=== PATIENT | female | born 1980 | race Caucasian/White ===

== ENCOUNTER 2017-09-09 07:41 | Inpatient (IN) | payer SELFPAY ==
--- NOTE | 2017-09-09 07:41 | DT_ITS ---
This patient was seen during an EMR downtime September 09, 2017 - September 16, 2017. This patient may have a combination of paper and electronic documentation or all paper documentation. All documentation is viewable within the e-chart portion of [employer] for each patient visit.
[2017-09-12 11:39] LABS: Amphetamine Urine VISTA POSITIVE (<1000 ng/mL); Barbiturate Urine VISTA NEGATIVE (< 200 ng/mL); Benzodiazepine Urine VISTA NEGATIVE (< 200 ng/mL); Cocaine Urine VISTA NEGATIVE (< 300 ng/mL); Ecstacy Urine VISTA NEGATIVE (< 500 ng/mL); Methadone Urine VISTA NEGATIVE (< 300 ng/mL); PCP Urine VISTA NEGATIVE (< 25 ng/mL); THC Urine VISTA NEGATIVE (< 50 ng/mL); Vista UDS pH Range 5
[2017-09-12 18:26] LABS: ROM Internal Control Test YES-OK TO RESULT pt. (Internal QC); ROM Patient Test POSITIVE (Negative)
[2017-09-13 12:18] LABS: Group B Strep DNA By PCR Negative (Negative); Internal Control PASS; Probe Check PASS; Specimen Processing Control PASS
[2017-09-13 12:19] LABS: Chlamydia Trachomatis by PCR Negative (Negative); Neisserai gonorrhoeae by PCR Negative (Negative); Probe Check PASS; Sample Adequacy Control PASS; Specimen Processing Control PASS; Trichomonas Vag DNA by PCR Negative (Negative)
[2017-09-14 10:06] LABS: Hematocrit 29.1 % (37-47); Hemoglobin 9.3 g/dl (12.0-15.0); Mean Corpuscular Hgb 25.7 pg (27.0-32.0); Mean Corpuscular Volume 80.4 fL (81-99); Mean Platelet Vol. 9.8 fl (6.2-12.0); Platelet Count 294 K/mm3 (150-450); RBC Distribution Width CV 14.2 % (11.6-14.6); RBC Distribution Width SD 40.3 fl (35.1-43.9); Red Blood Count 3.62 M/mm3 (4.2-5.4); Scan Indicated on CBC? Y/N YES- FLAGS NOTED
[2017-09-14 10:07] LABS: Differential Comment SCANNED
--- NOTE | 2017-09-19 10:52 | CASEMGMT ---
Social Work Note Labor and Delivery Unit Hospital down time procedures in place during patient's hospital stay. Social work consult was completed with patient on 09-09-17, and handwritten note was completed to be scanned into patient's medical record. A referral was made during hospitalization to [facility]. -MAULIK Motta, SALES OPERATIONS MANAGER
--- NOTE | 2017-09-25 11:18 | CASEMGMT ---
Social Work Note Labor and Delivery Unit Received call from Ava Lovett at [facility] ([phone], extension [phone]) stating the case was transferred from [facility] to [facility]. Patient/mother of baby's home County determined to be [facility]. Ava inquiring in results of drug confirmation that was sent out. For continuity of care, related to original reason for this newswriter's referral [facility], provided update that no results are showing back yet. Agreed to let Ava know when results are available. -MAULIK Motta, NETWORK SECURITY ENGINEER
--- NOTE | 2017-09-30 16:39 | CASEMGMT ---
Social Work Note Labor and Delivery Unit Patient's confirmation drug screen results are back and showing positive for both amphetamines and methamphetamines in the MOB's urine drug screen. Call to Ava at [facility] ([phone], extension [phone]). Message left to call this abstract writer for results. -MAULIK Motta, ROTARY HELPER
--- NOTE | 2017-10-01 08:55 | CASEMGMT ---
Social Work Labor and Delivery Unit As part of initial referral to [facility], and continuity of care regarding [facility], this health technical writer reported to Ava at [facility] results of patient/mother of baby (MOB) urine drug confirmation screen for amphetamines. MOB had reported that did not use any drugs, so a confirmation of original specimen was sent out. Results reported to Ava that confirmation toxicology showing MOB positive for amphetamines (level 2900 ng/ml) and methamphetamine (level greater than 4000 ng/ml). No other services requested or indicated. -MAULIK Motta, CLINIC LEAD
--- NOTE | 2017-10-11 08:41 | CASEMGMT ---
Social Work Note Labor and Delivery Unit Received call from Ava at [facility] ([facility]) inquiring what type of method is used for the drug screens at the hospital. This securities underwriter spoke with [facility] lab. Normal urine drug screen is reported to this securities underwriter to be done by method of in vitro quality analysis. Send out confirmation drug screens are reported to this securities underwriter to be performed by the method of Gas chromatography/Mass spectrometry. Reported this information to Ava for continuity of care of original [facility] -MAULIK Motta, VESSEL TRAFFIC OFFICER
--- NOTE | 2017-10-31 12:22 | HP.PCM_ITS ---
History Date of Admission: 09/09/17 Final ARMANDO: 11/15/17 History of this : This is a 37 year-old, G [], P [], at 31 weeks gestational age. Allergies No Known Allergies Allergy (Verified 01/12/17 04:17) Home Medications: Home Medications Hydrocodone Bitart/Apap 5-325 [[place] 5/325] 1 tablet PO Q4H PRN PRN #12 tablet 01/12/17 Multivitamins,Therapeutic [Multivitamin] 1 tablet PO DAILY 01/12/17 Smz/Tmp Ds [Bactrim Ds] 1 tablet PO BID #14 tablet 01/12/17 Smoking Status: Current every day smoker History Past Pregnancies: Past Pregnancies Delivery Date Name GA/Weeks Outcome Route Weight Gender Labor Length Anesthesia Delivery Location Provider FOB Labs: Patient presented in PTL. Physical Exam General: Alert, Oriented x3 Assessment/Plan Patient presented in PTL. She is s/p SOcial work consult placed Routine care
== END 2017-09-10 16:00 | disposition home or self-care (01) | DRG 774 ==
LOC: WPOUT 09-10 12:52 → WP 09-10 13:07
PROVIDERS: Admitting Provider Obstetrics & Gynecology; Visit Provider Obstetrics & Gynecology
DX: O42.913 Preterm premature rupture of membranes, unspecified as to length of time between rupture and onset of labor, third trimester (principal); O98.22 Gonorrhea complicating childbirth; D62 Acute posthemorrhagic anemia; O99.324 Drug use complicating childbirth; O99.02 Anemia complicating childbirth; Z37.0 Single live birth; Z3A.31 31 weeks gestation of pregnancy; F15.10 Other stimulant abuse, uncomplicated; Z3A.30 30 weeks gestation of pregnancy
CPT/HCPCS: 59025; 59050; 80307; 84112; 85027; 86850; 86900; 87491; 87591; 87653; 87661; 99218; J7120; G0378; J0702

== ENCOUNTER 2020-01-03 00:57 | Emergency (ER) | payer MEDICAID, SELFPAY ==
[2020-01-03 00:59] VITALS: BP 135/95; PULSE 85; RESP 16; TEMP 36.9; O2SAT 96; BMI 33.4
--- NOTE | 2020-01-03 01:26 | RAD_ITS ---
STUDY: X-RAY - LEFT FOOT CLINICAL: Female, 39 years old. ROLLED LT ANKLE -- C/O LT LATERAL ANKLE AND FOOT PAIN TECHNIQUE: 3 view(s) of the foot. COMPARISON: None. FINDINGS: Normal talus, calcaneus, and tarsal bones. Normal visualized subtalar, talonavicular, calcaneocuboid, tarsal and tarsometatarsal articulations. Normal metatarsi. Normal metatarsophalangeal joint of the great toe. Normal tibial and fibular sesamoid bones. Normal interphalangeal joint of the great toe. Normal phalanges of the great toe. Normal second through fifth metatarsophalangeal joints. Normal interphalangeal joints and phalanges of the lesser toes. The soft tissue structures are unremarkable. RAD/Foot min 3 Views IMPRESSION: Normal x-ray examination of the foot. Electronically Signed: Floyd Hutchins MD at 2:01 EDT , Service support ,
--- NOTE | 2020-01-03 01:26 | RAD_ITS ---
STUDY: X-RAY - LEFT ANKLE REASON FOR EXAM: Female, 39 years old. ROLLED LT ANKLE -- C/O LT LATERAL ANKLE AND FOOT PAIN TECHNIQUE: 3 view(s) of the ankle. COMPARISON: None. FINDINGS: Normal visualized distal tibia and fibula. Normal medial and lateral malleoli. Normal tibiotalar articulation and ankle mortise. Normal visualized talus and calcaneus. The visualized subtalar, talonavicular, calcaneocuboid and tarsal articulations are normal. The soft tissue structures are unremarkable. RAD/Ankle min 3 Views IMPRESSION: Normal x-ray examination of the ankle. Electronically Signed: Floyd Hutchins MD at 1:54 EDT , Service support ,
[2020-01-03] MEDS: Ibuprofen 600 MG Tablet PO (01:30)
--- NOTE | 2020-01-03 02:09 | ED.VIS.LOWEX ---
History of Present Illness Chief Complaint: Lower Extremity Injury Informant: Patient Occurred: Today Mechanism/Context: Injury - twisted L ankle walking in someone's yard Context: Sudden Onset Timing: Continuous Quality of Pain: Aching Location: lateral left ankle Current Severity: Mild Maximum Severity: Moderate Worsened by: walking/WBing Relieved by: rest Associated Symptoms: - - Initially was able to weight-bear, but after several hours, now it is difficult. Negative for: Parasthesia, Weakness Narrative: Denies any other injury. Did not fall. Past Medical History - Allergies and Home Meds Allergies/Adverse Reactions: Allergies piperacillin [From Zosyn] Allergy (Verified 01/03/20 00:58) Hives tazobactam [From Zosyn] Allergy (Verified 01/03/20 00:58) Hives Primary Care Physician: Care Physician,No Primary [Primary Care Provider] - Past Medical History: None Smoking Status: Current every day smoker Review of Systems Musculoskeletal: Reports: Extremity Pain. Denies: Neck pain, Back pain Skin: Denies: Rash, Wounds Neurological: Denies: Headache, Weakness, Numbness Physical Exam Vital Signs/Narrative: Vital Signs Temp Pulse Resp BP Pulse Ox 01/03/20 00:59 98.4 F 85 16 135/95 H 96 Inital Vital Signs reviewed: Yes - Extremity Exam Left Ankle: Limited ROM - Due to pain, but intact., - - Mild bony tenderness at the lateral malleolus, no other ankle tenderness. Nontender fibular head and knee. Tender at the base of the fifth metatarsal without deformity. No instability with lateral pressure on the foot.. Negative for: Deformity General: Well nourished, Well developed, - - NAD Head: Normocephalic, Atraumatic Skin: Normal color, No rash, No Trauma - Skin intact Neurological: Alert, Oriented x3, Cranial nerves II-XII grossly intact, Normal Strength, Normal Sensation Psychological: Normal affect, Normal Mood Diagnostic/Tx/Re-eval Clinical Impression(s) from Imaging Studies Ankle X-Ray 01/03/20 01:26 IMPRESSION: Normal x-ray examination of the ankle. Electronically Signed: Floyd Hutchins MD at 1:54 EDT , Service support , Foot X-Ray 01/03/20 01:26 IMPRESSION: Normal x-ray examination of the foot. Electronically Signed: Floyd Hutchins MD at 2:01 EDT , Service support , - Medical Decision Making X-rays are negative, consistent with a sprain. Given Aircast, offered ibuprofen as well. Will offer crutches. ED Disposition - Plan for ED Patient: Disposition: Home or Assisted Living Instructions: ED Sprain Ankle W X Ray Referrals: Doctor,Your [STAFF PHYSICIAN] - 10-14 Days if not better
[2020-01-03 02:29] VITALS: RESP 16
== END 2020-01-03 02:31 | disposition home or self-care (01) ==
PROVIDERS: Emergency Provider Emergency Medicine
DX: S93.402A Sprain of unspecified ligament of left ankle, initial encounter (principal); F17.200 Nicotine dependence, unspecified, uncomplicated; X50.1XXA Overexertion from prolonged static or awkward postures, initial encounter; Y93.01 Activity, walking, marching and hiking; Y92.007 Garden or yard of unspecified non-institutional (private) residence as the place of occurrence of the external cause; Y99.8 Other external cause status
CPT/HCPCS: 73610; 73630; 99284

== ENCOUNTER 2020-02-14 19:23 | Emergency (ER) | payer MEDICAID, SELFPAY ==
[2020-02-14 19:24] VITALS: BP 143/80; PULSE 95; RESP 16; TEMP 36.2; O2SAT 99; BMI 31.4
[2020-02-14] MEDS: MethylPREDNISolone 125 MG/2 ML Vial IV (20:44)
[2020-02-14] MEDS: DiphenhydrAMINE 50 MG/ML Syringe IV (20:45)
[2020-02-14] MEDS: Famotidine 200 MG/20 ML MDV 20 MG in 0.9% Normal Saline (Pres. free 8 ML 300 MG IV (20:46)
[2020-02-14 20:48] VITALS: BP 120/73; PULSE 58; RESP 25; O2SAT 99
--- NOTE | 2020-02-14 21:10 | ED.DCSUM_ITS ---
History of Present Illness Chief Complaint: Allergic Reaction Informant: Patient Onset: Today Context: Sudden Onset Timing: Continuous Quality: Erythematous raised paretic rash Location: Torso and extremities Current Severity: Mild Maximum Severity: Moderate Worsened by: Itching Relieved by: Nothing Associated Symptoms: No respiratory, cardiac or GI symptoms Narrative: Patient is a 39-year-old woman who presents with erythematous raised pruritic rash. She states it was first noted on her right and left forearm. She states she was moving pallets yesterday and had ink on them. She has never had a reaction before. She denies ingestion of shellfish food, nuts or berries prior to arrival. She denies prior reaction. She denies swelling of her lips, tongue or throat. She denies trouble swallowing or change in voice. She denies diffi culty breathing. She denies chest pain, shortness of breath or dyspnea on exertion. She denies nausea, vomiting or diarrhea. She denies orthostatic symptoms. Prior similar symptoms: No Recent Illness/Hospitalization: No - Past Medical History (1) No significant past medical history Status: Acute Past Medical History - Allergies and Home Meds Allergies/Adverse Reactions: Allergies piperacillin [From Zosyn] Allergy (Verified 01/03/20 00:58) Hives tazobactam [From Zosyn] Allergy (Verified 01/03/20 00:58) Hives Primary Care Physician: Care Physician,No Primary [Primary Care Provider] - Past Medical History: None Surgical History: no surgical history Lives: Alone Smoking Status: Current every day smoker Alcohol: Rare Drugs: None Review of Systems General: Denies: Chills, Fever, Malaise Eyes: Denies: Visual changes - bilaterally, Blurred Vision - bilaterally ENT: Reports: - - See HPI. Denies: Rhinorrhea, Sore throat Cardiovascular: Denies: Chest pain, Palpitations Respiratory: Denies: Dyspnea, Cough, Dyspnea on exertion Gastrointestinal: Denies: Abdominal pain, Nausea, Vomiting, Diarrhea Musculoskeletal: Reports: Swelling. Denies: Myalgias, Arthralgias, Extremity Pain Skin: Reports: Rash. Denies: Wounds Neurological: Denies: Weakness, Parasthesia, Numbness Hematologic: Denies: Easy bruising Allergy: Reports: Uticaria. Denies: Swelling of the mouth, Swelling of the tongue Physical Exam Vital Signs/Narrative: Vital Signs Temp Pulse Resp BP Pulse Ox 02/14/20 20:48 58 L 25 H 120/73 99 02/14/20 19:24 97.2 F L 95 16 143/80 H 99 Inital Vital Signs reviewed: Yes General: Well nourished, Well developed, No Acute Distress Head: Normocephalic, Atraumatic, Trauma Eyes: Perrl, EOMI. Negative for: Pale conjunctiva, Scleral icterus ENT: Moist mucous membranes, No rhinorrhea. Negative for: TM's clear Neck: Supple, Nontender, No lymphadenopathy, No JVD Cardiovascular: Regular rate, Regular rhythm, No murmurs, Normal S1, Normal S2 Respiratory: No distress, CTA bilaterally, Chest nontender Abdomen: Soft, Nontender, Nondistended, Normal bowel sounds, No masses Back: Nontender, Normal Inspection. Negative for: CVA tenderness Extremities: Nontender, No edema Skin: Normal color, Rash - Patient has an urticarial rash. Neurological: Alert, Oriented x3, Cranial nerves II-XII grossly intact, Normal Strength, Normal Sensation Psychological: Normal affect, Normal Mood Diagnostic/Tx/Re-eval - Medical Decision Making She has generalized urticaria with no other symptoms. She was treated with IV H1, H2 felice and Solu-Medrol. She was reassessed at 2109. Her rash has essentially resolved. Patient states her itching has resolved. She was instructed to follow-up with her primary care physician. The name of her primary care physician is located on her insurance card. ED Disposition - Plan for ED Patient: Disposition: Home or Assisted Living Diagnosis: Urticaria Instructions: ED URTICARIA Prescriptions: DiphenhydrAMINE [Benadryl] 25 mg PO 4X/DAY #20 cap Prescription Printed Prednisone [Deltasone] 40 mg PO DAILY #10 tab Prescription Printed Famotidine [Pepcid] 20 mg PO BID #10 tab Prescription Printed Referrals: Care Physician,No Primary [Primary Care Provider] - As soon as possible Additional Instructions: Name of your physician is located on your insurance card. Contact your physician for allergy testing.
[2020-02-14 22:00] VITALS: BP 108/61; PULSE 61; RESP 26; O2SAT 99
[2020-02-14 22:55] VITALS: BP 108/71; PULSE 69; RESP 17; O2SAT 98
== END 2020-02-14 22:56 | disposition home or self-care (01) ==
PROVIDERS: Emergency Provider Emergency Medicine
DX: L50.9 Urticaria, unspecified (principal); F17.200 Nicotine dependence, unspecified, uncomplicated
CPT/HCPCS: 96374; 96375; 99285; J7030; J7040; A4216; J3490

== ENCOUNTER → 2020-04-12 16:40 | Outpatient (CLI) | payer MEDICAID, SELFPAY ==
[2020-04-12 17:30] LABS: Absolute Lymphocyte Count 2.72 X10^3/uL (0.83-4.51); Absolute Neutrophil Count 8.9 X10^3/uL (2.0-7.7); Basophil# 0.01 X10^3/uL; Basophil% 0.1 % (0-1); Eosinophil# 0.22 X10^3/uL; Eosinophils% 1.8 % (0-5); Hematocrit 40.9 % (37-47); Hemoglobin 14.4 g/dL (12.0-15.0); Lymphocyte # 2.72 X10^3/ul (4.0); Lymphocyte % 22.6 % (19-41); Mean Corp Hgb Conc 35.2 g/dL (32-36); Mean Corpuscular Hgb 29.3 pg (27.0-32.0); Mean Corpuscular Volume 83.1 fL (81-99); Mean Platelet Vol. 9.7 fl (6.2-12.0); Monocyte# 0.21 X10^3/uL; Monocyte% 1.7 % (0-10); NRBC Flagged by Analyzer 0 % (0-5); Neutrophil # 8.85 X10^3/uL (2.7-7.7); Neutrophil % 73.5 % (47-70); Platelet Count 257 K/mm3 (150-450); RBC Distribution Width CV 12.5 % (11.6-14.6); RBC Distribution Width SD 37.9 fl (35.1-43.9); Red Blood Count 4.92 M/mm3 (4.2-5.4); White Blood Count 12.1 K/mm3 (4.4-11.0)
[2020-04-13 11:33] LABS: HIV - WCH Non-Reactive (Nonreactive); Hepatitis B Surface Antigen Non-Reactive (Nonreactive); Rubella IgG Reactive (Nonreactive)
[2020-04-13 11:47] LABS: Hepatitis C Antibody Reactive (Nonreactive)
[2020-04-14 01:36] LABS: Prenatal RPR NONREACTIVE (NONREACTIVE)
[2020-04-15 08:16] LABS: Chlamydia By Nucleic Acid AMP Negative (Negative)
[2020-04-15 08:24] LABS: Gonococcus By Nucleic Acid AMP Negative (Negative)
[2020-04-15 15:54] LABS: HPV APTIMA, High Risk Negative (Negative)
[2020-04-15 21:13] LABS: HCV log 10 6.955 (.)
== END ==
PROVIDERS: Visit Provider Obstetrics & Gynecology
DX: O98.411 Viral hepatitis complicating pregnancy, first trimester (principal); B19.20 Unspecified viral hepatitis C without hepatic coma; Z3A.00 Weeks of gestation of pregnancy not specified
CPT/HCPCS: 36415; 85025; 86703; 86762; 86803; 87086; 87088; 87186; 87340; 87491; 87522; 87591; 87624; 88175; G0145

== ENCOUNTER 2020-04-18 23:32 | Emergency (ER) | payer MEDICAID, SELFPAY ==
[2020-04-18 23:34] VITALS: BP 118/72; PULSE 111; RESP 16; TEMP 36.8; O2SAT 97; BMI 31.4
--- NOTE | 2020-04-18 23:51 | ED.DCSUM_ITS ---
History of Present Illness Chief Complaint: General Illness Detail of Chief Complaint: fever Informant: Patient Onset: Days - 2 Context: Gradual Onset Timing: Continuous Quality: throbbing, aching Location: global headache Current Severity: Moderate Maximum Severity: Moderate Worsened by: light Relieved by: nothing Associated Symptoms: mild global blurry vision, photophobia, fever to 101 Narrative: Patient started having headache 2 days ago, then started developing a fever earlier today. She denies any cough or respiratory symptoms. She works at a local factory. Patient presents during the national coronavirus emergency declaration/pandemic. Denies recent illness including COVID-19 or contact with anyone that he knows of who has had it. Denies traveling out of the immediate area recently. She states she is 7 weeks , having no abdominal pain, she had urinary frequency and nausea prior to developing the headache and fever, that has not changed, but now her urine smelled strong and she is concerned she may have a UTI. Past Medical History - Allergies and Home Meds Allergies/Adverse Reactions: Allergies piperacillin [From Zosyn] Allergy (Verified 04/18/20 23:36) Hives tazobactam [From Zosyn] Allergy (Verified 04/18/20 23:36) Hives Primary Care Physician: Vladimir Wood MD [Primary Care Provider] - Past Medical History: None Surgical History: no surgical history Smoking Status: Current every day smoker Review of Systems General: Reports: Chills, Fever, Malaise. Denies: Sweats Eyes: Reports: Blurred Vision - bilaterally - With photophobia mild. Denies: Diplopia ENT: Denies: Bilateral ear pain, Rhinorrhea, Sore throat Cardiovascular: Denies: Chest pain, Palpitations Respiratory: Denies: Dyspnea, Cough, Dyspnea on exertion Gastrointestinal: Reports: Nausea. Denies: Abdominal pain, Vomiting, Diarrhea, Melena, Hematochezia Genitourinary: Denies: Dysuria, Hematuria, Frequency Musculoskeletal: Denies: Myalgias, Back pain, Swelling, Extremity Pain Skin: Denies: Rash, Wounds Neurological: Reports: Headache, - - No confusion/disorientation or neck stiffness. Denies: Weakness, Numbness Physical Exam Vital Signs/Narrative: Vital Signs Temp Pulse Resp BP Pulse Ox 04/18/20 23:34 98.2 F 111 H 16 118/72 97 Inital Vital Signs reviewed: Yes General: Well nourished, Well developed, No Acute Distress - Well-appearing, conversive in full sentences, able to sit up in bed on her own, chin to chest without difficulty Head: Normocephalic, Atraumatic Eyes: Perrl, EOMI ENT: Moist mucous membranes, No rhinorrhea Neck: Supple, Nontender, No lymphadenopathy Cardiovascular: Regular rate, Regular rhythm, No murmurs Respiratory: No distress, CTA bilaterally, Chest nontender Abdomen: Soft, Nontender, Nondistended, Normal bowel sounds Back: Nontender, Normal Inspection. Negative for: CVA tenderness Extremities: Nontender, No edema Skin: Normal color, No rash, No Trauma Neurological: Alert, Oriented x3, Cranial nerves II-XII grossly intact, Normal Strength, Normal Sensation, Normal Gait Psychological: Normal affect, Normal Mood Diagnostic/Tx/Re-eval Laboratory Tests 04/19/20 Range/Units 00:04 Urine Color Yellow (Yellow) Urine Clarity Sl Cldy (Clear) Urine pH 5.0 (5.0 - 8.0) Ur Specific [place] 1.020 (1.002-1.030) Urine Protein 30 H (Negative) mg/dl Urine Glucose (UA) Normal (Normal) mg/dl Urine Ketones Negative (Negative) mg/dl Urine Occult Blood 50 H (Negative) /ul Urine Nitrite Negative (Negative) Urine Bilirubin Negative (Negative) mg/dL Urine Urobilinogen 1 H (Normal) mg/dl Ur Leukocyte Esterase 500 H (Negative) /ul Urine RBC 0-5 SEEN (0-5) /hpf Urine WBC 50-100 SEEN (0-5) /hpf Ur Squamous Epith Cells 5-10 SEEN (5-10) /hpf Urine Bacteria 2+ (None Seen) /hpf Urine Mucus 1+ (<or=2+) /hpf - Medical Decision Making Patient's urinalysis is consistent with infection which hopefully is the cause of her symptoms. However, since she presents during the coronavirus pandemic, I did recommend sending a COVID-19 test which she was amenable to, this was sent PCR as an outpatient since it will be more accurate and she would not meet criteria for monoclonal antibody infusion or any other specific treatments right now, so if she has it we do not need to know quickly for medical purposes. She was advised to quarantine until her test comes back in 3-5 days. Started on cephalexin which given her Zosyn allergy she will have a very low risk of reacting to. ED Disposition - Plan for ED Patient: Disposition: Home or Assisted Living Diagnosis: Urinary tract infection during in first trimester Instructions: ED Bladder Infection, Female (Adult) Prescriptions: Cephalexin [Keflex] 500 mg PO 4X/DAY 5 Days #20 cap Transmission Status: Pending to [facility] Referrals: Vladimir Wood MD [Primary Care Provider] - 3-5 Days if not improving Additional Instructions: Your urine was sent for culture. If you do not feel like you are urinary symptoms are improved, follow-up with your doctor for culture results and poss ible need for antibiotic change.
[2020-04-19] MEDS: Ibuprofen 600 MG Tablet PO (00:07)
[2020-04-19] MEDS: Metoclopramide 10 MG Tablet PO (00:08)
[2020-04-19 00:11] LABS: Glucose, Dipstick Normal (Normal); Ketone-Dipstick Negative (Negative); Leukocyte Esterase-Dipstick 500 /ul (Negative); Nitrite-Dipstick Negative (Negative); Occult Blood-Urine 50 /ul (Negative); Protein-Dipstick 30 mg/dl (Negative); Urine Bilirubin Dipstick Negative (Negative); Urine Urobilinogen 1 mg/dl (Normal)
[2020-04-19 00:32] LABS: Color, Urine Yellow (Yellow); Urine Clarity Sl Cldy (Clear)
[2020-04-19 00:33] LABS: White Blood Cells 50-100 SEEN /hpf (0-5)
[2020-04-19 00:34] LABS: Bacteria 2+ /hpf (None Seen); Red Blood Cells-Urine 0-5 SEEN /hpf (0-5); Squamous Epithelial Cells - UA 5-10 SEEN /hpf (5-10)
[2020-04-19 00:35] LABS: Mucous, Urine 1+ /hpf (<or=2+)
[2020-04-19] MEDS: Cephalexin 250 MG Capsule 500 MG PO (00:39)
== END 2020-04-19 01:21 | disposition home or self-care (01) ==
LOC: ED 04-19 00:38
PROVIDERS: Emergency Provider Emergency Medicine; PCP Obstetrics & Gynecology
DX: O23.41 Unspecified infection of urinary tract in pregnancy, first trimester (principal); Z3A.01 Less than 8 weeks gestation of pregnancy; O99.331 Smoking (tobacco) complicating pregnancy, first trimester; F17.200 Nicotine dependence, unspecified, uncomplicated
CPT/HCPCS: 81001; 87086; 87088; 87186; 87635; 99283; U0005; U0003

== ENCOUNTER → 2020-04-21 14:37 | Outpatient (CLI) | payer MEDICAID, SELFPAY ==
[2020-04-18 23:34] VITALS: BMI 31.4
[2020-04-21 16:06] LABS: ALB/GLOB Ratio 0.7 RATIO (0.9-2.4); AST(SGOT) 55 U/L (15-37); Alanine Aminotransfer ALT/SGPT 75 U/L (13-56); Albumin, Serum 3.3 g/dL (3.2-5.0); Alkaline Phosphatase 61 U/L (45-117); Anion Gap 7 (5-15); BUN 7 mg/dL (7-18); Calcium,Total 8.6 mg/dL (8.5-10.1); Chloride 104 mmol/L (98-107); Creatinine, Serum 0.54 mg/dL (0.55-1.02); EST Glomerular Filtration Rate 135 mL/min (>60); Est Glom Filt Rate - Afr Amer 163 mL/min (>60); Globulin 4.7 g/dL (2.2-4.2); Glucose 79 mg/dL (74-106); Potassium 3.5 mmol/L (3.5-5.1); Sodium Level 136 mmol/L (136-145)
== END ==
PROVIDERS: PCP Obstetrics & Gynecology; Visit Provider Obstetrics & Gynecology
DX: O98.411 Viral hepatitis complicating pregnancy, first trimester (principal); B19.20 Unspecified viral hepatitis C without hepatic coma; Z3A.00 Weeks of gestation of pregnancy not specified
CPT/HCPCS: 36415; 80053

== ENCOUNTER → 2020-06-07 16:47 | Outpatient (CLI) | payer MEDICAID, SELFPAY ==
[2020-06-16 14:09] LABS: AFP MoM Value 1.19 (.); AFP Value-EIA 30.9 ng/mL (.); Comment Report (.); DIA MoM Value 1.28 (.); DIA Value-EIA 206.96 pg/mL (.); DSR (By Age) 105 (.); DSR (Second Trimester) 770 (.); Gestat. Age Based On As provided (.); Insulin Dep Diabetes No (.); Maternal Age At EDD 39.3 yr (.); hCG MoM 0.76 (.); hCG Value 38414 mIU/mL (.)
[2020-06-16 14:43] LABS: CF, Screen Comment: (.)
== END ==
PROVIDERS: PCP Obstetrics & Gynecology; Visit Provider Obstetrics & Gynecology
DX: O09.522 Supervision of elderly multigravida, second trimester (principal); Z3A.00 Weeks of gestation of pregnancy not specified
CPT/HCPCS: 36415; 81220; 82105; 82677; 84702

== ENCOUNTER 2020-06-23 03:19 | Emergency (ER) | payer MEDICAID, SELFPAY ==
[2020-06-23 03:20] VITALS: BP 145/88; PULSE 100; RESP 18; TEMP 36.6; O2SAT 100; BMI 31.9
--- NOTE | 2020-06-23 03:33 | ED.VISSUMM ---
- ER Visit Summary Date of Service: 06/23/20 Chief Complaint: Abdominal pain, 17 weeks gestation History of Present Illness: The patient is a 39 F who presents with lower abdominal pain. Is been ongoing all day yesterday into this morning. She is G7, P6 at 17 weeks. She has had some slight nausea without vomiting. She describes the pain as sharp and in the suprapubic region and radiates to the right lower quadrant. She does have a history of constipation. Her last bowel movement was 3 days ago. She denies any dysuria or hematuria. She has had an ultrasound with this that shows an intrauterine . She took Tums gas relief without any resolution of her pain. Dr. Wood is her MANAGER SPA. She has had an appendectomy in the past as well. She denies any vaginal bleeding or vaginal discharge. Physical Examination: Vital signs reviewed. HEENT exam unremarkable. Heart is regular rate and rhythm without murmurs. Lungs are clear to auscultation. Abdomen is soft and nontender. Extremities reveal no edema. Skin exam normal. Neurologic exam normal. Test Results: Urinalysis has 4+ bacteria with 0-5 white blood cells. Emergency Department Course and Treatment: I performed a bedside ultrasound. It does show an active fetus with a heart tone of 156. She does not have an appendix therefore this cannot be appendicitis. It could be round ligament pain or constipation. She does have asymptomatic bacteria. I will place her on Keflex for this. She has tolerated Rocephin in the past. She will continue Tylenol at home. Also place her on Colace as a stool softener. Treatment Plan: [] Disposition: Discharge Impression: Second trimester , asymptomatic bacteriuria, abdominal pain This note was generated with [employer] dictation software. It may contain incorrect words, spelling, and punctuation that were not noted in review of the chart prior to signing ED Disposition - Plan for ED Patient: Disposition: Home or Assisted Living Instructions: ED Abdominal Pain Unkn Cause Fem Prescriptions: Docusate Sodium [Colace] 100 mg PO DAILY #20 capsule Transmission Status: Pending to [facility] Cephalexin [Keflex] 500 mg PO Q12 #10 capsule Transmission Status: Pending to [facility] Referrals: Vladimir Wood MD [Primary Care Provider] -
[2020-06-23] MEDS: Acetaminophen 500 MG Tablet 1000 MG PO (03:34)
[2020-06-23 03:37] LABS: Red Blood Cells-Urine 0 SEEN /hpf (0-5)
[2020-06-23 03:39] LABS: Color, Urine Yellow (Yellow); Glucose, Dipstick Normal (Normal); Ketone-Dipstick 5 mg/dl (Negative); Leukocyte Esterase-Dipstick 100 /ul (Negative); Nitrite-Dipstick Negative (Negative); Occult Blood-Urine 10 /ul (Negative); Protein-Dipstick 15 mg/dl (Negative); Specific Gravity, Urine 1.025 (1.002-1.030); Urine Bilirubin Dipstick Negative (Negative); Urine Clarity Clear (Clear); Urine Urobilinogen 1 mg/dl (Normal)
[2020-06-23 03:47] LABS: White Blood Cells 0-5 SEEN /hpf (0-5)
[2020-06-23 03:48] LABS: Bacteria 4+ /hpf (None Seen); Hyaline Cast 0-5 SEEN /lpf (0-5); Mucous, Urine 3+ /hpf (<or=2+); Squamous Epithelial Cells - UA 0-5 SEEN /hpf (5-10)
[2020-06-23] MEDS: Cephalexin 250 MG Capsule 500 MG PO (04:31)
[2020-06-23 04:33] VITALS: BP 142/81; PULSE 80; RESP 18; O2SAT 96
== END 2020-06-23 04:33 | disposition home or self-care (01) ==
PROVIDERS: Emergency Provider Emergency Medicine; PCP Obstetrics & Gynecology
DX: O26.892 Other specified pregnancy related conditions, second trimester (principal); R82.71 Bacteriuria; O99.332 Smoking (tobacco) complicating pregnancy, second trimester; Z3A.17 17 weeks gestation of pregnancy
CPT/HCPCS: 81001; 99283

== ENCOUNTER → 2020-07-12 16:37 | Outpatient (CLI) | payer MEDICAID, SELFPAY ==
[2020-06-23 03:20] VITALS: BMI 31.9
[2020-07-12 17:33] LABS: Hematocrit 37.7 % (37-47); Hemoglobin 12.9 g/dL (12.0-15.0); Mean Corp Hgb Conc 34.2 g/dL (32-36); Mean Corpuscular Hgb 29.9 pg (27.0-32.0); Mean Corpuscular Volume 87.3 fL (81-99); Platelet Count 236 K/mm3 (150-450); RBC Distribution Width CV 13.2 % (11.6-14.6); Red Blood Count 4.32 M/mm3 (4.2-5.4); White Blood Count 14.4 K/mm3 (4.4-11.0)
[2020-07-12 18:28] LABS: ALB/GLOB Ratio 0.7 RATIO (0.9-2.4); AST(SGOT) 25 U/L (15-37); Alanine Aminotransfer ALT/SGPT 34 U/L (13-56); Alkaline Phosphatase 55 U/L (45-117); Anion Gap 6 (5-15); BUN 7 mg/dL (7-18); BUN/Creat Ratio 11.8 RATIO (10-20); Calcium,Total 8.9 mg/dL (8.5-10.1); Chloride 105 mmol/L (98-107); Creatinine, Serum 0.59 mg/dL (0.55-1.02); EST Glomerular Filtration Rate 120 mL/min (>60); Est Glom Filt Rate - Afr Amer 146 mL/min (>60); Globulin 4.3 g/dL (2.2-4.2); Glucose 85 mg/dL (74-106); Potassium 3.4 mmol/L (3.5-5.1); Protein, Total 7.3 g/dL (6.4-8.2); Sodium Level 135 mmol/L (136-145)
[2020-07-13 08:41] LABS: HIV - WCH Non-Reactive (Nonreactive); Syphilis Antibodies Non-reactive
[2020-07-14 20:08] LABS: HCV Quant. RNA PCR 1620000 IU/mL (.)
== END ==
PROVIDERS: PCP Obstetrics & Gynecology; Visit Provider Obstetrics & Gynecology
DX: O98.412 Viral hepatitis complicating pregnancy, second trimester (principal); B19.20 Unspecified viral hepatitis C without hepatic coma; Z3A.00 Weeks of gestation of pregnancy not specified
CPT/HCPCS: 36415; 80053; 85027; 86703; 86780; 87522

== ENCOUNTER → 2020-08-11 15:56 | Outpatient (CLI) | payer MEDICAID, SELFPAY ==
[2020-08-11 17:16] LABS: Hematocrit 37.6 % (37-47); Hemoglobin 12.6 g/dL (12.0-15.0); Mean Corp Hgb Conc 33.5 g/dL (32-36); Mean Corpuscular Hgb 29.2 pg (27.0-32.0); Mean Platelet Vol. 9.8 fl (6.2-12.0); Platelet Count 228 K/mm3 (150-450); RBC Distribution Width CV 13.2 % (11.6-14.6); RBC Distribution Width SD 41.8 fl (35.1-43.9); Red Blood Count 4.32 M/mm3 (4.2-5.4); White Blood Count 12.2 K/mm3 (4.4-11.0)
[2020-08-11 17:58] LABS: Glucose Challenge Gest 1H 50g 108 mg/dL (70-140)
== END ==
PROVIDERS: PCP Obstetrics & Gynecology; Visit Provider Obstetrics & Gynecology
DX: Z34.82 Encounter for supervision of other normal pregnancy, second trimester (principal)
CPT/HCPCS: 36415; 82950; 85027

== ENCOUNTER → 2020-11-01 17:03 | Outpatient (CLI) | payer MEDICAID, SELFPAY ==
[2020-11-01 17:37] LABS: Hematocrit 39.3 % (37-47); Hemoglobin 13.6 g/dL (12.0-15.0); Mean Corp Hgb Conc 34.6 g/dL (32-36); Mean Corpuscular Hgb 29.5 pg (27.0-32.0); Mean Corpuscular Volume 85.2 fL (81-99); Mean Platelet Vol. 10.3 fl (6.2-12.0); Platelet Count 193 K/mm3 (150-450); RBC Distribution Width SD 42.8 fl (35.1-43.9); Red Blood Count 4.61 M/mm3 (4.2-5.4); White Blood Count 11.6 K/mm3 (4.4-11.0)
[2020-11-01 18:01] LABS: ALB/GLOB Ratio 0.6 RATIO (0.9-2.4); AST(SGOT) 20 U/L (15-37); Alanine Aminotransfer ALT/SGPT 22 U/L (13-56); Albumin, Serum 2.7 g/dL (3.2-5.0); Alkaline Phosphatase 86 U/L (45-117); Anion Gap 8 (5-15); BUN 8 mg/dL (7-18); BUN/Creat Ratio 15.6 RATIO (10-20); Calcium,Total 8.1 mg/dL (8.5-10.1); Chloride 109 mmol/L (98-107); Creatinine, Serum 0.51 mg/dL (0.55-1.02); EST Glomerular Filtration Rate 141 mL/min (>60); Est Glom Filt Rate - Afr Amer 171 mL/min (>60); Globulin 4.2 g/dL (2.2-4.2); Glucose 90 mg/dL (74-106); Potassium 3.9 mmol/L (3.5-5.1); Protein, Total 6.9 g/dL (6.4-8.2); Sodium Level 139 mmol/L (136-145)
[2020-11-02 09:01] LABS: HIV - WCH Non-Reactive (Nonreactive); Syphilis Antibodies Non-reactive
[2020-11-04 13:01] LABS: HCV log 10 5.967 (.)
== END ==
PROVIDERS: PCP Obstetrics & Gynecology; Visit Provider Obstetrics & Gynecology
DX: O98.419 Viral hepatitis complicating pregnancy, unspecified trimester (principal); B19.20 Unspecified viral hepatitis C without hepatic coma; Z3A.00 Weeks of gestation of pregnancy not specified; Z36.85 Encounter for antenatal screening for Streptococcus B
CPT/HCPCS: 36415; 80053; 85027; 86703; 86780; 87081; 87522

== ENCOUNTER 2020-11-08 11:15 | Inpatient (IN) | payer MEDICAID, SELFPAY ==
[2020-11-08] VITALS (39 sets, daily range): BP systolic 100–149; BP diastolic 54–83; PULSE 65–125; RESP 18; TEMP 36.2–37.1; O2SAT 96–100; BMI 33.5
--- NOTE | 2020-11-08 11:45 | PCM.HP.BLA ---
History and Physical Date of Admission: 11/08/20 Chief complaint: Leakage of fluid History of present illness: 40-year-old G7, P6 at 37 weeks 0 days with ARMANDO 11/29/2020 by LMP confirmed with 8-week ultrasound arrives with leakage of clear fluid that started at 2300 on 11/28/2020. Denies headache, chest pain, shortness of breath, nausea vomiting, right upper quadrant pain. Patient states good movement. is complicated by AMA, hepatitis C positive, grand multipara risks, history of IV drug use Obstetric history: G1: 37-week female 12/12/2000 G2: 39-week female 04/30/2003 G3: 39-week male 02/13/2009 G4: 38-week male 02/26/2013 G5: 38-week male 12/04/2015 G6: 34-week female 09/09/2017. labor secondary to drug use G7: Current Past medical history: Hepatitis C positive Medications: vitamin, aspirin Past surgical history: LEEP, appendectomy Allergies: Zosyn Social history: 1 pack/day smoker. History of IV drug use last used 2 years ago. Denies alcohol use Family history: Denies history DVT or PE Review of systems: Besides above pertinent positives a full review of systems was performed and found to be negative Physical exam: General: Normal-appearing no acute distress HEENT: Normocephalic atraumatic no cervical of adenopathy Cardiac/respiratory: No use of accessory muscles, nonlabored breathing Abdomen: Soft, nontender, gravid Pelvic exam: Cervical exam 3/60/-3. Grossly ruptured clear fluid. Nitrazine positive, ferning positive Extremities: No peripheral edema normal peripheral pulses Psych: Normal affect normal demeanor nonpressured speech Assessment plan: 40-year-old G7, P6 at 37 weeks and 0 days with spontaneous rupture of membranes at 2300 on 11/07/2020 Admit labor and delivery See EFM GBS negative Augment with Pitocin with PROM Hep C: Maternal and precautions History of IV drug abuse: Social service consult, urine drug screen Routine orders Anesthesia to see
[2020-11-08] MEDS: Lactated Ringers 1,000 ML 50 ML IV (11:50)
[2020-11-08 12:17] LABS: Absolute Lymphocyte Count 2.66 X10^3/uL (0.83-4.51); Absolute Neutrophil Count 9.5 X10^3/uL (2.0-7.7); Basophil# 0.05 X10^3/uL; Basophil% 0.4 % (0-1); Eosinophil# 0.24 X10^3/uL; Eosinophils% 1.8 % (0-5); Hematocrit 42.5 % (37-47); Hemoglobin 14.2 g/dL (12.0-15.0); Lymphocyte # 2.66 X10^3/ul (0.83-4.51); Lymphocyte % 20.3 % (19-41); Mean Corp Hgb Conc 33.4 g/dL (32-36); Mean Corpuscular Volume 86.9 fL (81-99); Mean Platelet Vol. 10.2 fl (6.2-12.0); Monocyte# 0.56 X10^3/uL; Monocyte% 4.3 % (0-10); NRBC Flagged by Analyzer 0 % (0-5); Neutrophil # 9.48 X10^3/uL (2.7-7.7); Neutrophil % 72.5 % (47-70); Platelet Count 192 K/mm3 (150-450); RBC Distribution Width SD 43.8 fl (35.1-43.9); Red Blood Count 4.89 M/mm3 (4.2-5.4); White Blood Count 13.1 K/mm3 (4.4-11.0)
[2020-11-08] MEDS: Oxytocin 30 units/NS 500 ml 30 UNITS/500 ML IV.SOLN IV (12:20)
[2020-11-08 12:27] LABS: Amphetamine Urine VISTA NEGATIVE (<1000 ng/mL); Barbiturate Urine VISTA NEGATIVE (< 200 ng/mL); Benzodiazepine Urine VISTA NEGATIVE (< 200 ng/mL); Cocaine Urine VISTA NEGATIVE (< 300 ng/mL); Ecstacy Urine VISTA NEGATIVE (< 500 ng/mL); Methadone Urine VISTA NEGATIVE (< 300 ng/mL); PCP Urine VISTA NEGATIVE (< 25 ng/mL); THC Urine VISTA NEGATIVE (< 50 ng/mL); Vista UDS pH Range 6
[2020-11-08] MEDS: Lactated Ringers 500 ML 999 ML IV (18:15)
[2020-11-08] MEDS: fentaNYL-bupivacaine (epidural) 100 ML BAG EPIDURAL (18:50)
[2020-11-08] MEDS: Oxytocin 30 units/NS 500 ml 30 UNITS/500 ML IV.SOLN 334 UNITS IV (19:25)
--- NOTE | 2020-11-08 19:35 | EX.PCM.OBRPT ---
Vaginal Delivery Findings Description of Procedure: Normal spontaneous vaginal delivery of a viable male , vertex RED. Head and shoulders delivered with ease. Cord cut and clamped. Baby handed off to nursing. Placenta delivered via cord traction and fundal massage. Immediate Liletta IUD placed. No lacerations noted. EBL 250 cc Apgars 9/10
[2020-11-08] MEDS: Levonorgestrel IUD (Liletta) 1 EACH INTRA-UTER (20:04)
--- NOTE | 2020-11-08 22:45 | NURSING ---
Report received from Hayley RICO, taking over pt and care at this time.
[2020-11-08] MEDS: Ibuprofen 600 MG Tablet PO (22:46)
[2020-11-09 03:45] VITALS: BP 120/61; PULSE 81; RESP 16; TEMP 36.2; O2SAT 96
[2020-11-09] MEDS: Acetaminophen 500 MG Tablet 1000 MG PO (03:51)
--- NOTE | 2020-11-09 05:54 | PCM.PN.OB ---
Subjective Subjective No overnight complaints. Pain well controlled. Objective Data Objective Data Vital Signs: Vital Signs Temp Pulse Resp BP Pulse Ox 98.3 F 75 18 134/58 H 96 11/08/20 23:45 11/08/20 23:45 11/08/20 23:45 11/08/20 23:45 11/08/20 23:45 Oxygen Delivery Method Room Air Weight: 189 lb 9.561 oz Body Mass Index (BMI) 33.5 Intake & Output: Intake and Output for Last 24 Hours 11/07/20 11/08/20 11/09/20 23:59 23:59 23:59 Intake Total 1799.80 / 1799.80 Output Total 750 / 750 Balance 1049.80 / 1049.80 Lab / Micro Data Result Diagrams: 11/08/20 11:50 Labs: Laboratory Results - last 24 hr 11/08/20 11:40: Urine Opiates Screen NEGATIVE, Urine Methadone Screen NEGATIVE, Ur Barbiturates Screen NEGATIVE, Ur Phencyclidine Scrn NEGATIVE, Ur Amphetamines Screen NEGATIVE, U Methamphetamin-MDMA NEGATIVE, U Benzodiazepines Scrn NEGATIVE, Urine Cocaine Screen NEGATIVE, U Cannabinoids Screen NEGATIVE, Ur Drug Screen Comment 11/08/20 11:50: WBC 13.1 H, RBC 4.89, Hgb 14.2, Hct 42.5, MCV 86.9, MCH 29.0, MCHC 33.4, RDW Std Deviation 43.8, RDW Coeff of Janae 14.0, Plt Count 192, MPV 10.2, Immature Gran % (Auto) 0.700, Neut % (Auto) 72.5 H, Lymph % (Auto) 20.3, Sabine % (Auto) 4.3, Eos % (Auto) 1.8, Baso % (Auto) 0.4, Absolute Neuts (auto) 9.5 H, Absolute Lymphs (auto) 2.66, Nucleated RBC % 0 11/08/20 11:50: Blood Type A POSITIVE, Antibody Screen NEGATIVE Micro: Microbiology 11/08/20 11:46 Mucosa - Nose SARS-CoV-2 Antigen (Rapid) - Final Physical Exam Const alert, oriented x3, no apparent distress, average body habitus and healthy appearing HEENT normocephalic and moist oral mucous membranes Head and Scalp: atraumatic Face and Sinus: normal facial exam Neck full ROM Resp normal respiratory effort, no retractions and no use of accessory muscles GI normal to inspection, nondistended, normoactive bowel sounds GI Narrative: Uterus firm and below umbilicus Extremity normal to inspection and no clubbing, cyanosis or edema Psych mental status grossly normal, affect normal, speech normal and activity/motor behavior normal Assessment & Plan (1) : PLAN: day 1. Breast and bottlefeeding. Pain well controlled. Hepatitis C, standard precautions for mom and baby. Likely discharge home tomorrow
[2020-11-09 08:51] VITALS: BP 120/72; PULSE 85; RESP 16; TEMP 36.3; O2SAT 96
[2020-11-09] MEDS: Ibuprofen 600 MG Tablet PO ×2 (09:05→21:39)
[2020-11-09 12:20] VITALS: BP 114/73; PULSE 89; RESP 16; TEMP 36.5; O2SAT 95
[2020-11-09 17:00] VITALS: BP 115/69; PULSE 99; RESP 18; TEMP 36.5; O2SAT 96
[2020-11-09 20:42] VITALS: BP 121/77; PULSE 106; RESP 18; TEMP 36.6
== END 2020-11-09 22:20 | disposition home or self-care (01) | DRG 560 ==
PROVIDERS: Admitting Provider Obstetrics & Gynecology; Visit Provider Obstetrics & Gynecology
DX: O60.14X0 Preterm labor third trimester with preterm delivery third trimester, not applicable or unspecified (principal); O98.42 Viral hepatitis complicating childbirth; B19.20 Unspecified viral hepatitis C without hepatic coma; O99.334 Smoking (tobacco) complicating childbirth; F17.200 Nicotine dependence, unspecified, uncomplicated; Z3A.37 37 weeks gestation of pregnancy; Z37.0 Single live birth
CPT/HCPCS: 59025; 59050; 80307; 85025; 86850; 86900; 86901; 87426; 99218; J7120; G0378

== ENCOUNTER 2021-04-14 14:25 | Outpatient (CLI) | payer MEDICAID, SELFPAY ==
[2021-04-14 15:42] LABS: Absolute Neutrophil Count 7.2 X10^3/uL (2.0-7.7); Basophil# 0.02 X10^3/uL; Basophil% 0.2 % (0-1); Eosinophil# 0.34 X10^3/uL; Eosinophils% 3.5 % (0-5); Hematocrit 35.7 % (37-47); Hemoglobin 12.7 g/dL (12.0-15.0); Lymphocyte % 18.6 % (19-41); Mean Corp Hgb Conc 35.6 g/dL (32-36); Mean Corpuscular Hgb 30.1 pg (27.0-32.0); Mean Corpuscular Volume 84.6 fL (81-99); Mean Platelet Vol. 9.9 fl (6.2-12.0); Monocyte# 0.32 X10^3/uL; Monocyte% 3.3 % (0-10); NRBC Flagged by Analyzer 0 % (0-5); Neutrophil # 7.16 X10^3/uL (2.7-7.7); Neutrophil % 73.8 % (47-70); Platelet Count 238 K/mm3 (150-450); RBC Distribution Width CV 13.4 % (11.6-14.6); RBC Distribution Width SD 41.6 fl (35.1-43.9); Red Blood Count 4.22 M/mm3 (4.2-5.4); White Blood Count 9.7 K/mm3 (4.4-11.0)
[2021-04-14 17:24] LABS: HIV - WCH Non-Reactive (Nonreactive); Hepatitis B Surface Antigen Non-Reactive (Nonreactive); Hepatitis C Antibody Preliminary Reactive (Nonreactive); Rubella IgG Reactive (Nonreactive); Syphilis Antibodies Non-reactive
[2021-04-17 21:07] LABS: Chlamydia By Nucleic Acid AMP Negative (Negative)
[2021-04-17 22:22] LABS: Gonococcus By Nucleic Acid AMP Negative (Negative)
== END 2021-04-14 23:59 | disposition short-term general hospital (02) ==
LOC: WOBLAB 14:25
PROVIDERS: Visit Provider Obstetrics & Gynecology
DX: Z34.82 Encounter for supervision of other normal pregnancy, second trimester (principal)
CPT/HCPCS: 36415; 85025; 86703; 86762; 86780; 86803; 87077; 87086; 87088; 87186; 87340; 87491; 87591

== ENCOUNTER 2021-05-01 15:20 | Outpatient (CLI) | payer MEDICAID, SELFPAY ==
[2021-05-01 17:22] LABS: AST(SGOT) 35 U/L (15-37); Alanine Aminotransfer ALT/SGPT 36 U/L (13-56); Alkaline Phosphatase 57 U/L (45-117); Bilirubin, Direct 0.12 mg/dL (0.00-0.30); Globulin 4.5 g/dL (2.2-4.2); Protein, Total 7.5 g/dL (6.4-8.2)
[2021-05-03 21:07] LABS: HCV Quant. RNA PCR 9130000 IU/mL (.)
== END 2021-05-01 23:59 | disposition short-term general hospital (02) ==
LOC: WOBLAB 15:21
PROVIDERS: Visit Provider Obstetrics & Gynecology
DX: Z34.82 Encounter for supervision of other normal pregnancy, second trimester (principal); O98.412 Viral hepatitis complicating pregnancy, second trimester; B19.20 Unspecified viral hepatitis C without hepatic coma
CPT/HCPCS: 36415; 80076; 87522

== ENCOUNTER 2021-05-30 14:43 | Outpatient (CLI) | payer MEDICAID, SELFPAY ==
[2021-05-30 15:20] LABS: Hematocrit 35.7 % (37-47); Hemoglobin 12.5 g/dL (12.0-15.0); Mean Corpuscular Hgb 30.4 pg (27.0-32.0); Mean Corpuscular Volume 86.9 fL (81-99); Mean Platelet Vol. 9.6 fl (6.2-12.0); Platelet Count 211 K/mm3 (150-450); RBC Distribution Width CV 13.6 % (11.6-14.6); RBC Distribution Width SD 42.6 fl (35.1-43.9); Red Blood Count 4.11 M/mm3 (4.2-5.4); White Blood Count 11.3 K/mm3 (4.4-11.0)
[2021-05-30 15:26] LABS: Glucose Challenge Gest 1H 50g 130 mg/dL (70-140)
== END 2021-05-30 23:59 | disposition home or self-care (01) ==
LOC: WOBLAB 14:43
PROVIDERS: Visit Provider Obstetrics & Gynecology
DX: Z34.83 Encounter for supervision of other normal pregnancy, third trimester (principal)
CPT/HCPCS: 36415; 82950; 85027

== ENCOUNTER → 2021-08-17 | Outpatient (CLI) | payer MEDICAID, SELFPAY ==
[2021-08-17 14:26] LABS: Hematocrit 38.4 % (37-47); Hemoglobin 13.4 g/dL (12.0-15.0); Mean Corp Hgb Conc 34.9 g/dL (32-36); Mean Corpuscular Hgb 30.9 pg (27.0-32.0); Mean Corpuscular Volume 88.5 fL (81-99); Mean Platelet Vol. 10.2 fl (6.2-12.0); Platelet Count 254 K/mm3 (150-450); RBC Distribution Width CV 13.2 % (11.6-14.6); RBC Distribution Width SD 42.5 fl (35.1-43.9); Red Blood Count 4.34 M/mm3 (4.2-5.4); White Blood Count 15.7 K/mm3 (4.4-11.0)
[2021-08-17 15:28] LABS: HIV - WCH Non-Reactive (Nonreactive); Hepatitis B Surface Antigen Non-Reactive (Nonreactive); Syphilis Antibodies Non-reactive
[2021-08-19 20:07] LABS: HCV Quant. RNA PCR 1340000 IU/mL (.)
[2021-08-20 08:21] LABS: HCV log 10 6.127 (.)
[2021-08-21 21:07] LABS: Chlamydia By Nucleic Acid AMP Negative (Negative)
[2021-08-21 21:46] LABS: Gonococcus By Nucleic Acid AMP Negative (Negative)
== END | disposition home or self-care (01) ==
LOC: WOBLAB 14:03
PROVIDERS: Visit Provider Obstetrics & Gynecology
DX: Z34.83 Encounter for supervision of other normal pregnancy, third trimester (principal); Z36.85 Encounter for antenatal screening for Streptococcus B
CPT/HCPCS: 36415; 85027; 86703; 86780; 87081; 87340; 87491; 87522; 87591

== ENCOUNTER 2021-08-27 00:30 | Outpatient (CLI) | payer MEDICAID, SELFPAY ==
[2021-08-27 00:46] VITALS: BP 127/71; PULSE 96; TEMP 36.6
[2021-08-27 01:43] VITALS: BMI 34.1
[2021-08-27 01:59] LABS: ROM Internal Control Test YES-OK TO RESULT pt. (Internal QC); ROM Patient Test Negative (Negative)
[2021-08-27 02:15] LABS: Amphetamine Urine VISTA NEGATIVE (<1000 ng/mL); Barbiturate Urine VISTA NEGATIVE (< 200 ng/mL); Benzodiazepine Urine VISTA NEGATIVE (< 200 ng/mL); Cocaine Urine VISTA NEGATIVE (< 300 ng/mL); Ecstacy Urine VISTA NEGATIVE (< 500 ng/mL); Methadone Urine VISTA NEGATIVE (< 300 ng/mL); PCP Urine VISTA NEGATIVE (< 25 ng/mL); THC Urine VISTA NEGATIVE (< 50 ng/mL); Vista UDS pH Range 6
[2021-08-27 02:28] VITALS: O2SAT 100
[2021-08-27 02:29] VITALS: BP 126/64; PULSE 97
[2021-08-27 02:31] VITALS: TEMP 36
[2021-08-27 06:34] VITALS: BP 117/71; PULSE 83
--- NOTE | 2021-08-27 18:47 | OB.TRI.NOTE ---
HPI - General HPI Narrative SUSAN FERNANDEZ, is a 41 F who presents at 38+ weeks 2 days gestation with some contractions PFSH PFSH Medical History (Updated 08/27/21 @ 18:[address] Peter Lepe MD) Hepatitis History of pre-term labor Home Medications vit,[id number] 1 tablet PO DAILY 06/23/20 [History Last Taken 11/07/20] vitamin B complex 1 each PO DAILY 06/23/20 [History Last Taken 10/25/20] docusate sodium 100 mg PO DAILY 11/08/20 [History Last Taken 10/27/20] Allergy/AdvReac Type Severity Reaction Status Date / Time piperacillin [From Zosyn] Allergy Hives Verified 08/27/21 01:43 tazobactam [From Zosyn] Allergy Hives Verified 08/27/21 01:43 Surgical History (Updated 11/08/20 @ 13:18 by Diana Jaffe) History of surgery Social History Smoking Status: Light Smoker (<10/day) History Elective abortions Hx Para 7 Spontaneous abortions Hx # Term Pregnancies Ectopic pregnancies Hx # Pregnancies Multiple births # of living children NST FHR Rate Baby A NST Reactive:: Yes FHR Category:: Category I Uterine Activity:: some contractions but diminished after observation Assessment & Plan (1) False labor, antepartum: PLAN: 38+ week IUP with false labor. Observed overnight as cervix 4-5 cm which was similar to that seen in the office. However, no change overnight and contractions diminished. Reactive NST. Released to home with routine labor instructions.
== END 2021-08-27 07:25 | disposition home or self-care (01) ==
LOC: WPOUT 00:33 → WP 00:34
PROVIDERS: Visit Provider Obstetrics & Gynecology
DX: O47.1 False labor at or after 37 completed weeks of gestation (principal); F17.200 Nicotine dependence, unspecified, uncomplicated; O99.333 Smoking (tobacco) complicating pregnancy, third trimester; Z3A.38 38 weeks gestation of pregnancy; Z86.19 Personal history of other infectious and parasitic diseases
CPT/HCPCS: 59050 ×2; G0378 ×2; 80307; 84112; 59025; 99218

== ENCOUNTER 2021-08-29 03:44 | Inpatient (IN) | payer MEDICAID, SELFPAY ==
[2021-08-29] VITALS (57 sets, daily range): BP systolic 66–127; BP diastolic 41–72; PULSE 74–113; RESP 16–18; TEMP 36.3–36.8; O2SAT 96–100; BMI 33.8
[2021-08-29] MEDS: Lactated Ringers 500 ML 999 ML IV ×3 (03:55→07:20)
[2021-08-29 04:09] LABS: Absolute Neutrophil Count 15.1 X10^3/uL (2.0-7.7); Basophil# 0.08 X10^3/uL; Basophil% 0.4 % (0-1); Eosinophil# 0.38 X10^3/uL; Eosinophils% 1.9 % (0-5); Hematocrit 40.9 % (37-47); Hemoglobin 13.8 g/dL (12.0-15.0); Lymphocyte % 17.7 % (19-41); Mean Corp Hgb Conc 33.7 g/dL (32-36); Mean Corpuscular Hgb 30.4 pg (27.0-32.0); Mean Corpuscular Volume 90.1 fL (81-99); Mean Platelet Vol. 10.2 fl (6.2-12.0); Monocyte# 0.97 X10^3/uL; Monocyte% 4.8 % (0-10); NRBC Flagged by Analyzer 0 % (0-5); Neutrophil # 15.12 X10^3/uL (2.7-7.7); Neutrophil % 74.4 % (47-70); Platelet Count 251 K/mm3 (150-450); RBC Distribution Width CV 13.2 % (11.6-14.6); RBC Distribution Width SD 43.5 fl (35.1-43.9); Red Blood Count 4.54 M/mm3 (4.2-5.4); White Blood Count 20.3 K/mm3 (4.4-11.0)
[2021-08-29] MEDS: Ondansetron 4 MG/2 ML Vial IV ×2 (04:17→07:55)
[2021-08-29] MEDS: Lactated Ringers 1,000 ML 200 ML IV (04:30)
[2021-08-29] MEDS: fentaNYL-bupivacaine (epidural) 100 ML BAG EPIDURAL (05:02)
[2021-08-29] MEDS: Acetaminophen 500 MG Tablet PO (05:46)
--- NOTE | 2021-08-29 07:15 | HP.PCM.OB_ITS ---
History and Physical Date of Admission: 08/29/21 HPI: 41-year-old Francesco Cage at 38/4 weeks, ARMANDO 09/08/2021 by 8-week ultrasound, admitted in active labor. Patient reports contractions. Denies leaking of fluid, vaginal bleeding. Reports movement. Denies headache, vision changes, chest pain or shortness of breath, nausea or vomiting, diarrhea or constipation, fevers or chills. complicated by: Grand multiparity, advanced maternal age, resolved choroid plexus cyst, hepatitis C, history of delivery, former IV drug u ser, no use for 3 to 4 years, tobacco user. SAND MILLER history: G1: 2000 37-week G2: 2003 39-week G3: 2008 39-week G4: 2012 38-week G5: 20 1638-week G6: 20 1834-week G7: 2020 37-week G8: Current Medical history: 1. Hepatitis C 2. Depression Surgical history: 1. Appendectomy 2009 2. LEEP 2003 Allergies: Zosyn causes hives or rash Medications: 1. Prozac 2. vitamin 3. Aspirin 81 mg Family history: Noncontributory Social: Current tobacco user, former IV drug abuse, denies alcohol use. Negative tox screen on 08/27/2021 Review of systems: negative otherwise stated as above Physical exam: Vitals Pulse 80, BP 78/49, oxygen saturation 99% on room air General: Comfortable with epidural, no acute distress HEENT: Pupils equally round reactive to light and accommodation, normocephalic/atraumatic Cardiac: Regular rate and rhythm Lungs: Clear to auscultation bilaterally Abdomen: Gravid, nontender Extremities: Minimal edema Neurologic: Cranial nerves II through XII grossly intact Musculoskeletal: Muscle strength 5 out of 5 throughout all extremities Cervical exam: 8/80/0 station, AROM clear fluid heart rate: 125/moderate variability/+accel/no decel [place]: not tracing labs: A positive HCV positive, viral load 1,340,000 IU/mL HBV negative HIV negative Syphilis nonreactive Gonorrhea/chlamydia negative Rubella immune GBS neg 08/17 Labs on admission: A positive WBC 20.3, hemoglobin/hematocrit 13.8/40.9, platelets 251 COVID negative Assessment/plan:41-year-old Francesco Cage at 38/4 weeks, ARMANDO 09/08/2021 by 8-week ultrasound, admitted in active labor. complicated by: Grand multiparity, advanced maternal age, resolved choroid plexus cyst, hepatitis C, history of delivery, former IV drug user, no use for 3 to 4 years, tobacco user. ? Admit to labor and delivery ? Epidural when patient desires ? GBS negative ? AROM as patient is in active labor at 8 cm ? Advanced maternal age ? Resolved choroid plexus cyst, NIPT negative ? Hepatitis C. For GI follow-up ? Former IV drug user. No use for several years. Toxicology screen negative on August 27. ?Tobacco use. Encourage cessation ?Plan for Nexplanon immediate Assessment & Plan Assessment/Plan (1) Active labor at term: (2) : QUALIFIERS: Weeks of gestation: 38 weeks Qualified Code(s): Z3A.38 - 38 weeks gestation of (3) Hepatitis C: QUALIFIERS: Viral hepatitis chronicity: chronic Hepatic coma status: without hepatic coma Qualified Code(s): B18.2 - Chronic viral hepatitis C (4) Advanced maternal age (AMA) in : (5) Short interval between pregnancies affecting in third trimester, antepartum:
[2021-08-29] MEDS: ePHEDrine Sulfate 50 MG/ML Ampul 10 MG IV (07:18)
[2021-08-29] MEDS: ePHEDrine Sulfate 50 MG/ML Ampul IM (07:51)
[2021-08-29 08:25] LABS: Amphetamine Urine VISTA NEGATIVE (<1000 ng/mL); Barbiturate Urine VISTA NEGATIVE (< 200 ng/mL); Benzodiazepine Urine VISTA NEGATIVE (< 200 ng/mL); Cocaine Urine VISTA NEGATIVE (< 300 ng/mL); Ecstacy Urine VISTA NEGATIVE (< 500 ng/mL); Methadone Urine VISTA NEGATIVE (< 300 ng/mL); PCP Urine VISTA NEGATIVE (< 25 ng/mL); THC Urine VISTA NEGATIVE (< 50 ng/mL); Vista UDS pH Range 6
[2021-08-29] MEDS: Oxytocin 30 units/NS 500 ml 30 UNITS/500 ML IV.SOLN 334 UNITS IV (09:20)
--- NOTE | 2021-08-29 09:34 | EX.PCM.OBRPT ---
Vaginal Delivery Findings Description of Procedure: Normal spontaneous vaginal delivery of a viable female infant, vertex RED. Head and shoulders delivered with ease. Cord cut and clamped. Baby handed off to patient. Placenta delivered via manual extraction. No lacerations noted. EBL 300 cc Apgars 8/9
[2021-08-29] MEDS: Ibuprofen 600 MG Tablet PO ×2 (11:58→17:41)
--- NOTE | 2021-08-29 15:44 | NURSING ---
1530 pt asked about going out to smoke- offered alternative therapies- pt denies- AMA form signed to go smoke- pt not leaving now though
--- NOTE | 2021-08-29 17:44 | NURSING ---
pt now requesting nicotine patch
[2021-08-29] MEDS: Etonogestrel 68 MG IMPLANT SC (18:25)
--- NOTE | 2021-08-29 18:37 | PCM.PN.BLA ---
Progress Note Patient seen and examined. Patient desires Nexplanon device. Risk benefits alternatives discussed. All questions were answered and consent was signed. Left olecranon was palpated and measurement was made for device placement. Luis was made and sterile field was obtained. 1% lidocaine, 3 cc injected. Nexplanon device was placed in standard fashion. Good hemostasis was noted. Steri-Strips placed and wrap was placed. Educated patient on post procedure instructions and warning signs
--- NOTE | 2021-08-29 18:50 | NURSING ---
[address] lazo
[2021-08-29] MEDS: Acetaminophen 500 MG Tablet 1000 MG PO (20:04)
[2021-08-30] VITALS (7 sets, daily range): BP systolic 120–131; BP diastolic 72–86; PULSE 80–92; RESP 16–18; TEMP 36.1–36.8; O2SAT 96–99
[2021-08-30] MEDS: Ibuprofen 600 MG Tablet PO ×3 (01:20→15:21)
[2021-08-30] MEDS: Senna/Docusate Sodium 1 Tablet PO (01:20)
--- NOTE | 2021-08-30 08:32 | PCM.PN.OB ---
Subjective Subjective Patient without complaints. Bottlefeeding. Patient has hepatitis C. Minimal vaginal bleeding reported. Wants to go home later today. Objective Data Objective Data Vital Signs: Vital Signs Temp Pulse Resp BP Pulse Ox 97.5 F L 92 16 127/86 H 98 08/30/21 03:56 08/30/21 08:27 08/30/21 03:56 08/30/21 08:27 08/30/21 03:56 Oxygen Delivery Method Room Air Weight: 191 lb 3.2 oz Body Mass Index (BMI) 33.8 Intake & Output: Intake and Output for Last 24 Hours 08/28/21 08/29/21 08/30/21 23:59 23:59 23:59 Intake Total 2966.67 / 2966.67 Output Total 650 / 650 Balance 2316.67 / 2316.67 Lab / Micro Data Result Diagrams: 08/29/21 03:55 Micro: Microbiology 08/29/21 03:55 Nasal Secretion SARS-CoV-2 Antigen (Rapid) - Final Assessment & Plan (1) Spontaneous vaginal delivery: PLAN: Doing well day #1 status post routine spontaneous vaginal delivery. Will discharge to home with routine instructions.
--- NOTE | 2021-08-30 08:34 | PCM.DC ---
Discharge Instructions Diet Discharge Diet: No restrictions Activity Discharge Activity: May Drive (In 1 to 2 days if not taking narcotic pain medication), May Shower and May Take a Tub Bath May resume sexual activity in: 4-6 weeks Additional Activity Instructions:: Nothing in the vagina for 4-6 weeks. You may return to work/school in 6 weeks. Dressing / Incision Call your doctor if you observe: Fever of 101 or Higher, Inability to urinate, Inability to have a bowel movement and Using more than 1 pad per hour Follow Up Care Please Follow Up With: Vladimir Wood MD When: Call [phone] to make an appointment with your doctor in 6weeks. Follow-up with primary care physician to arrange for treatment of hepatitis C. Test Results: Test results from this visit will be discussed in further detail at your follow-up appointment, if applicable. Discharge Plan Admission Admit Date/Time: 08/29/21 03:44 Primary Reason for Your Visit: Spontaneous Vaginal Delivery Attending Provider: Vladimir Wood Discharge Orders/Prescriptions Prescriptions: No Action vitamin B complex 1 EACH capsule 1 each PO DAILY RF: 0 vit,[id number] 1 TABLET tablet 1 tablet PO DAILY RF: 0 docusate sodium 100 MG capsule 100 mg PO DAILY RF: 0 Disposition Disposition (needs filled in before D/C Order can be placed): Home, Self Care
[2021-08-30] MEDS: Acetaminophen 500 MG Tablet 1000 MG PO (11:02)
--- NOTE | 2021-08-30 16:00 | CASEMGMT ---
Social Work Assessment Labor and Delivery Unit Patient Address: Residential Address -[address] [place] [address]; mailing address-[address] [place] [address] [address], [place], [place] Phone number: [phone] Date of Referral: 08/30/2021 Time of Referral: 1219 Referred By: Dr. Vladimir Wood Date of Intervention: 08/30/2021 Time of Intervention: 1600 Reason for Referral: PHQ-9 score of 5 History obtained from: Medical records including past social work assessment and mother of baby (MOB) Mariann Harvey Household composition: Apartment with son Brian Abreu. Plan to take baby girl to this home as well. Reports home situation is safe and adequate. Patient's parent/guardian status: SEBASTIÁN is a 40 year old single female. Father of baby (FOB) is reported as Kunal Abreu ( 01.04.1992). MOB reports she and the FOB are together, but live separately. FOB lives in [place]. MOB denies any abuse history in the relationship with the FOB. SEBASTIÁN has 8 children: Corazon Duran (born 2000) and Allison Duran (born 2003) - loss of custody in 2011 and lived with paternal grandmother Harrison Martin (born 2008) - lost custody in 2011 and living with father. Sacha (Born 02.26.2013), Javan (Born 2015), and Haritha Trung (Born 09.09.2017) - in the custody of MOB's sister. Brian Abreu - born 11.08.2020, in MOB's custody. Father is Kunal Abreu. Melfa Garrett Abreu - born 08.29.2021, in MOB's custody. FOB same as Brian. Medical History: SEBASTIÁN is G8, P7 to 8 after delivering Garrett. care started late at 21 weeks in April 2021. Delivery of Caitlinvianna occurred at 38 weeks. 8 pounds 6 ounces, Apgars 8 and 9 at 1 and 5 minutes of life. Educational Status: MOB with 11th grade education per record. MOB able to read, write and understand what is read. 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 Plans to take some time off. Reports to have bills met. Supplies: Reports necessary supplies including a safe sleep space and car seat. MOB is bottlefeeding. Childcare/Caregiver(s): SEBASTIÁN will be the primary caregiver and will have childcare arranged when returns to work. Transportation: MOB reports to have transportation and denies any concerns. 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 Programs/Agencies Involved: MOB reports to have services through job and family services and [facility]. Declines to help me grow referral. Denies any current mental health treatment. Children Services/Legal Issues: Denies any current legal charges or probation. Denies any current involvement with children services. MOB has had involvement in the past through [facility] for issues related to SEBASTIÁN's past substance use. MOB reports after the of Brian, children services did come out for a well check, just due to past history with children services though no active concerns at the time. MOB reports no concerns were found at home visit and the case was closed. There has been no court involvement since Brian's . Behavioral Health Issues: Mental Health History: SEBASTIÁN has history of depression and depression. SEBASTIÁN was still in the timeframe with Brian when became with this . MOB's PHQ-9 with a score of 5 falling into the mild range of depression. MOB reports the physician did prescribe an antidepressant, which MOB did not take regularly during . MOB reports intent to at this point, to restart the antidepressant now that not . History of counseling and treatment at [facility] but nothing current. Denies any history of suicidal ideation, planning, intent or attempts. Substance Use History: SEBASTIÁN with a significant substance abuse history. 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 Reports October 2021 will be 4 years clean. SEBASTIÁN went through drug rehab in 2018 and then resided in sober living in 2018 through [facility]. History of methamphetamine use and cocaine use in the past. No reported alcohol or marijuana usage during this , and these were not the MOB drugs of choice. Drug Screens: Drug screens for this occurring only in the third trimester on 08/27/2021 and again on 08/29/2021. Prior to this the last drug screen was at time of delivery for last child on December 05, 2020. No drug testing for this infant. Family/Social Stressors: Unplanned and closely spaced from delivery occurring in November 2020. MOB reports total unplanned, accepting of the and desires to parent this baby. Finances at times are tight, but MOB reports to be managing and denies any concerns with basic needs. Support Systems: MOB reports that although living in [facility], still has support from the MOB's mother who lives in [facility] and then friends and family who live in [facility]. MOB's oldest daughter just had a baby in the last month, and is having more contact relationship with the oldest children. Depression/Shaken Baby/Safe Sleeping: Reviewed shaken baby and safe sleeping. Information given for home-going. Reviewed mood and anxiety disorders, risk factors and importance of seeking help and support should symptoms start increasing or become distressing. MOB reports intent to restart antidepression medication at home going. ASSESSMENT: Met with MOB in room, introducing to self and social work role. 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 MOB pleasant and cooperative, with good eye contact. MOB was nondefensive. MOB reports has been sober of substances for the last 4 years and has custody of the child born in 2020. Reports to have contact with her other children and systemic family gatherings. Reports to have stable housing, necessary supplies to care for the baby, transportation, and access to food. MOB plans to continue working with WIC and job and family services. There have been no voiced concerns regarding parent-child interactions or bonding this admission. There have been no positive drug screens during this . Addressed the PHQ-9 with MOB's, which MOB attributes some of the symptoms related to end of . MOB acknowledges that she is gone through a lot of change in a short amount of time with having 2 children under the age of 1, and plans to restart antidepressant to help prevent distress from mood. No thoughts of harm to self or others and no thoughts of suicide endorsed. Based on no positive drug screens during this or the prior to this with MOB maintaining custody of the child born in 2020, no additional referrals to be made. Safe Plan of Care for infant related to substance use: Maintain sobriety, with reports of abstinence since October 2017. PLAN: MOB and will discharge home. Provided MOB with [facility] resources for social service agencies as well as mood and anxiety disorders. MOB is active with WIC and job and family services. -GÓMEZ Motta, IESHA *This note was generated with Mangoation software. It may contain incorrect words, spelling, and punctuation that were not noted in review of the chart prior to signing*
== END 2021-08-30 17:15 | disposition home or self-care (01) | DRG 560 ==
LOC: WPOUT 03:47 → WP 03:47
PROVIDERS: Student in an Organized Health Care Education/Training Program; Admitting Provider Obstetrics & Gynecology; Visit Provider Obstetrics & Gynecology
DX: O98.42 Viral hepatitis complicating childbirth (principal); Z37.0 Single live birth; B18.2 Chronic viral hepatitis C; Z20.822 Contact with and (suspected) exposure to COVID-19; Z3A.38 38 weeks gestation of pregnancy; Z79.82 Long term (current) use of aspirin; Z79.899 Other long term (current) drug therapy
CPT/HCPCS: 59025; 59050; 80307; 84112; 85025; 86850; 86900; 86901; 87426; 99218; J7120; G0378; J2405